=== PATIENT | male | born 2000 | race Asian ===

== ENCOUNTER 2021-08-10 15:15 | Emergency (ER) | payer OTHER ==
[~2021-08-10] VITALS: Ht 175.3 cm; Wt 81.6 kg
[2021-08-10 15:15] VITALS: BP 133/66; TEMP 97.4
[2021-08-10 16:02] LABS: PLATELET COUNT 272 K/uL (142-355)
== END 2021-08-10 16:31 | disposition still patient (30) ==
LOC: ED 15:20
PROVIDERS: Hospitalist
DX: F41.8 Other specified anxiety disorders (principal); G44.209 Tension-type headache, unspecified, not intractable; Z53.29 Procedure and treatment not carried out because of patient's decision for other reasons
CPT/HCPCS: 80053; 80320; 80329; 85027; 93005; 99283